=== PATIENT | male | born 1985 | race Hispanic/Latino ===

== ENCOUNTER 2019-12-13 02:17 | Emergency (ER) | payer SELFPAY ==
[2019-12-13] MEDS ORDERED: ONDANSETRON 4 MG/2 ML VIAL ONE (02:42)
[2019-12-13] MEDS ORDERED: DIPHENHYDRAMINE 50 MG/ML VIAL ONE (02:42)
[2019-12-13] MEDS ORDERED: KETOROLAC 30 MG/ML INJ ONE (02:42)
[2019-12-13] MEDS ORDERED: NA CHLORIDE 0.9% 1,000 ML ONE (02:42)
--- NOTE | 2019-12-13 05:05 | ER ---
Nurse's Notes [facility] Name: Roney Anderson Age: 34 yrs Sex: Male : 1985 Arrival Date: 12/13/2019 Time: 02:20 Bed 7 Private MD: Diagnosis: Migraine without aura, not intractable, without status migrainosus Presentation: 12/12 02:31 Chief complaint: Patient states: he has been having a migraine since this morning which bb is getting worse the pain is now 10/10 did not take any medication for his headache. Coronavirus screen: The patient has NOT traveled to a country currently being monitored by the [facility] within the last 14 days. Proceed with normal triage procedures. Ebola Screen: No symptoms or risks identified at this time. Initial Sepsis Screen: Does the patient meet any 2 criteria? No. Patient's initial sepsis screen is negative. Does the patient have a suspected source of infection? No. Patient's initial sepsis screen is negative. Risk Assessment: Do you want to hurt yourself or someone else? Patient reports no desire to harm self or others. Onset of symptoms was December 12, 2019. 02:31 Method Of Arrival: Ambulatory bb 02:31 Acuity: MARGY 3 bb Triage Assessment: 02:35 Headache History: The patient has had previous headaches. bb 05:36 Pain: Pain at worst was 10 out of 10 on a pain scale. Pain began suddenly, Also jd3 complains of no other associated symptoms. Historical: - Allergies: 02:35 No Known Allergies; bb - Home Meds: 02:35 None [Active]; bb - PMHx: 02:35 Migraines; bb - PSHx: 02:35 Appendectomy; bb - Immunization history:: Adult Immunizations up to date. - Social history:: Smoking status: Patient reports the use of cigarette tobacco products, daily, Patient uses alcohol, occasionally. Screenin:36 Abuse screen: Denies threats or abuse. Nutritional screening: No deficits noted. jd3 Tuberculosis screening: No symptoms or risk factors identified. Fall Risk Ambulatory Aid- None/Bed Rest/Nurse Assist (0 pts). Gait- Normal/Bed Rest/Wheelchair (0 pts) Mental Status- Oriented to own ability (0 pts). Total Nelson Fall Scale indicates No Risk (0-24 pts). Assessment: 02:52 General: Appears in no apparent distress. uncomfortable, well groomed, well developed, sg well nourished, Behavior is calm, cooperative, appropriate for age. Pain: Complains of pain in head Quality of pain is described as pressure, sharp, throbbing. Neuro: Level of Consciousness is awake, alert, obeys commands, Oriented to person, place, time, [employer] Officer are equal bilaterally Moves all extremities. Gait is steady, Speech is normal, Facial symmetry appears normal, Reports headache in entire frontal area, occipital area, Denies weakness blurred vision dizziness. Cardiovascular: Patient's skin is warm and dry. Chest pain is denied. Respiratory: Airway is patent Respiratory effort is even, unlabored, Respiratory pattern is regular, symmetrical. GI: Abdomen is round non-distended, Reports nausea. : No signs and/or symptoms were reported regarding the genitourinary system. EENT: No signs and/or symptoms were reported regarding the EENT system. Derm: Skin is pink, warm \T\ dry. Musculoskeletal: Circulation, motion, and sensation intact. Range of motion: intact in all extremities. 04:07 Reassessment: Patient appears in no apparent distress at this time. Patient and/or sg family updated on plan of care and expected duration. Pain level reassessed. Patient is alert, oriented x 3, equal unlabored respirations, skin warm/dry/pink. Patient states feeling better. 04:38 Reassessment: Patient appears in no apparent distress at this time. Patient and/or jd3 family updated on plan of care and expected duration. Pain level reassessed. Patient is alert, oriented x 3, equal unlabored respirations, skin warm/dry/pink. resting in bed with eyes closed, even and unlabored respiration, call light in reach, awaiting disposition. Patient states feeling better. 05:35 Reassessment: Patient appears in no apparent distress at this time. Patient and/or jd3 family updated on plan of care and expected duration. Pain level reassessed. Patient is alert, oriented x 3, equal unlabored respirations, skin warm/dry/pink. reports understanding of discharge instructions, even and steady gait upon discharge. Vital Signs: 02:31 BP 147 / 92; Pulse 60; Resp 18 S; Temp 97.9(O); Pulse Ox 98% on R/A; Weight 90.72 kg bb (R); Height 5 ft. 10 in. (177.80 cm) (R); Pain 10/10; 03:36 BP 127 / 69; Pulse 65; Resp 18; Temp 97.9; Pulse Ox 98% on R/A; sg 04:41 BP 129 / 75; Pulse 63; Resp 16 S; Pulse Ox 99% on R/A; jd3 02:31 Body Mass Index 28.70 (90.72 kg, 177.80 cm) bb Lamont Coma Score: 04:58 Eye Response: spontaneous(4). Verbal Response: oriented(5). Motor Response: obeys tw4 commands(6). Total: 15. ED Course: 02:20 Patient arrived in ED. es 02:32 Celso Fischer MD is Attending Physician. tw4 02:32 Douglas Skinner, RN is Primary Nurse. sg 02:34 Triage completed. bb 02:35 Arm band placed on Patient placed in an exam room, on a stretcher, on pulse oximetry. bb Family accompanied patient. 02:48 No provider procedures requiring assistance completed. Inserted saline lock: 20 gauge sg in right forearm, using aseptic technique. 04:38 Primary Nurse role handed off by Douglas Skinner, RN jd3 04:38 Rome Mike RN is Primary Nurse. jd3 05:36 Patient has correct armband on for positive identification. Bed in low position. Call jd3 light in reach. Side rails up X 1. Adult w/ patient. Pulse ox on. NIBP on. 05:37 IV discontinued, intact, bleeding controlled, No redness/swelling at site. Pressure jd3 dressing applied. Administered Medications: 02:50 Drug: TORadol 30 mg Route: IVP; Site: right forearm; sg 03:50 Follow up: Response: No adverse reaction jd3 02:50 Drug: Zofran (Ondansetron) 4 mg Route: IVP; Site: right forearm; sg 03:50 Follow up: Response: No adverse reaction jd3 02:50 Drug: Benadryl 25 mg Route: IVP; Site: right forearm; sg 03:50 Follow up: Response: No adverse reaction jd3 02:50 Drug: NS 0.9% 1000 ml Route: IV; Rate: 1 bolus; Site: right forearm; sg 03:50 Follow up: Response: No adverse reaction; IV Status: Completed infusion; IV Intake: jd3 1000ml Intake: 03:50 IV: 1000ml; Total: 1000ml. jd3 Outcome: 05:04 Discharge ordered by . tw4 05:36 Discharged to home ambulatory, with family. jd3 05:36 Condition: stable 05:36 Discharge instructions given to patient, family, Instructed on discharge instructions, follow up and referral plans. medication usage, Demonstrated understanding of instructions, follow-up care, medications, Prescriptions given X 2. 05:38 Patient left the ED. jd3 Signatures: Douglas Skinner RN RN Merry Mcgowan Brenda RN RN Rmoe Renae RN RN Celso Espinosa MD MD tw4 Corrections: (The following items were deleted from the chart) 03:37 03:36 BP 142 / 88; Pulse 65bpm; Resp 18bpm; Pulse Ox 98% RA; Temp 97.9F; sg sg 05:36 04:38 Reassessment: Patient appears in no apparent distress at this time. Patient jd3 and/or family updated on plan of care and expected duration. Pain level reassessed. Patient is alert, oriented x 3, equal unlabored respirations, skin warm/dry/pink. resting in bed with eyes closed, even and unlabored respiration, call light in reach, awaiting disposition. Patient states feeling better. jd3
--- NOTE | 2019-12-13 05:06 | EDPHYS ---
Physician Documentation [facility] Name: Roney Anderson Age: 34 yrs Sex: Male : 1985 Arrival Date: 12/13/2019 Time: 02:20 Bed 7 Private MD: ED Physician Celso Fischer HPI: 12/12 03:08 This 34 yrs old Male presents to ER via Ambulatory with complaints of Headache.tw4 03:08 The patient complains of pain to the forehead. The patient describes the headache as tw4 aching, intermittent. Onset: The symptoms/episode began/occurred today. Associated signs and symptoms: The patient has no apparent associated signs or symptoms. Severity of symptoms: At its worst the pain was moderate, in the emergency department the pain is unchanged. The patient has not experienced similar symptoms in the past. Historical: - Allergies: 02:35 No Known Allergies; bb - Home Meds: 02:35 None [Active]; bb - PMHx: 02:35 Migraines; bb - PSHx: 02:35 Appendectomy; bb - Immunization history:: Adult Immunizations up to date. - Social history:: Smoking status: Patient reports the use of cigarette tobacco products, daily, Patient uses alcohol, occasionally. ROS: 03:08 Constitutional: Negative for fever, chills, and weight loss, Eyes: Negative for injury, tw4 pain, redness, and discharge, Cardiovascular: Negative for chest pain, palpitations, and edema, Respiratory: Negative for shortness of breath, cough, wheezing, and pleuritic chest pain, Abdomen/GI: Negative for abdominal pain, nausea, vomiting, diarrhea, and constipation, Back: Negative for injury and pain, MS/Extremity: Negative for injury and deformity, Skin: Negative for injury, rash, and discoloration. 03:08 Neuro: Positive for headache, Negative for altered mental status, dizziness, gait disturbance, hearing loss, loss of consciousness, numbness, seizure activity, speech changes, syncope, near syncope, tinnitus, tremor, weakness. Exam: 03:08 Constitutional: This is a well developed, well nourished patient who is awake, alert, tw4 and in no acute distress. Head/Face: Normocephalic, atraumatic. Chest/axilla: Normal chest wall appearance and motion. Nontender with no deformity. No lesions are appreciated. Cardiovascular: Regular rate and rhythm with a normal S1 and S2. No gallops, murmurs, or rubs. Normal PMI, no JVD. No pulse deficits. Respiratory: Lungs have equal breath sounds bilaterally, clear to auscultation and percussion. No rales, rhonchi or wheezes noted. No increased work of breathing, no retractions or nasal flaring. Abdomen/GI: Soft, non-tender, with normal bowel sounds. No distension or tympany. No guarding or rebound. No evidence of tenderness throughout. Back: No spinal tenderness. No costovertebral tenderness. Full range of motion. MS/ Extremity: Pulses equal, no cyanosis. Neurovascular intact. Full, normal range of motion. Neuro: Awake and alert, GCS 15, oriented to person, place, time, and situation. Cranial nerves II-XII grossly intact. Motor strength 5/5 in all extremities. Sensory grossly intact. Cerebellar exam normal. Normal gait. Vital Signs: 02:31 BP 147 / 92; Pulse 60; Resp 18 S; Temp 97.9(O); Pulse Ox 98% on R/A; Weight 90.72 kg bb (R); Height 5 ft. 10 in. (177.80 cm) (R); Pain 10/10; 03:36 BP 127 / 69; Pulse 65; Resp 18; Temp 97.9; Pulse Ox 98% on R/A; sg 04:41 BP 129 / 75; Pulse 63; Resp 16 S; Pulse Ox 99% on R/A; jd3 02:31 Body Mass Index 28.70 (90.72 kg, 177.80 cm) Lamont Coma Score: 04:58 Eye Response: spontaneous(4). Verbal Response: oriented(5). Motor Response: obeys tw4 commands(6). Total: 15. MDM: 02:32 Patient medically screened. tw4 04:58 Differential diagnosis: cluster headache, migraine, temporal arteritis, tension tw4 headache. Data reviewed: vital signs, nurses notes. Data interpreted: Pulse oximetry: Interpretation: normal. Test interpretation: by ED physician or midlevel provider: not applicable. Counseling: I had a detailed discussion with the patient and/or guardian regarding: the historical points, exam findings, and any diagnostic results supporting the discharge/admit diagnosis. Medication response: Toradol relieved patient's pain. The symptoms have resolved. Response to treatment: the patient's symptoms have markedly improved after treatment, and as a result, I will discharge patient, administer pain medication. Special discussion: I discussed with the patient/guardian in detail that at this point there is no indication for admission to the hospital. It is understood, however, that if the symptoms persist or worsen the patient needs to return immediately for re-evaluation. Administered Medications: 02:50 Drug: TORadol 30 mg Route: IVP; Site: right forearm; sg 03:50 Follow up: Response: No adverse reaction jd3 02:50 Drug: Zofran (Ondansetron) 4 mg Route: IVP; Site: right forearm; sg 03:50 Follow up: Response: No adverse reaction jd3 02:50 Drug: Benadryl 25 mg Route: IVP; Site: right forearm; sg 03:50 Follow up: Response: No adverse reaction jd3 02:50 Drug: NS 0.9% 1000 ml Route: IV; Rate: 1 bolus; Site: right forearm; sg 03:50 Follow up: Response: No adverse reaction; IV Status: Completed infusion; IV Intake: jd3 1000ml Disposition: 12/13/19 05:04 Discharged to Home. Impression: Migraine without aura, not intractable, without status migrainosus. - Condition is Stable. - Discharge Instructions: Migraine Headache, Recurrent Migraine Headache. - Prescriptions for Fiorinal 50- 325-40 mg Oral Capsule - take 1 capsule by ORAL route every 4 hours As needed - not to exceed 6 capsules per day; 20 capsule. Ibuprofen 800 mg Oral Tablet - take 1 tablet by ORAL route every 8 hours As needed take with food; 30 tablet. - Work release form, Medication Reconciliation Form, Thank You Letter, Antibiotic Education, Prescription Opioid Use form. - Follow up: Private Physician; When: Upon discharge from the Emergency Department; Reason: Recheck today's complaints, Continuance of care, Re-evaluation by your physician. - Problem is new. - Symptoms have improved. Signatures: Douglas Skinner RN RN sg Lizbeth Little RN RN [place] Renae RN RN jd3 Celso Fischer MD MD tw4 Corrections: (The following items were deleted from the chart) 05:38 05:04 12/13/2019 05:04 Discharged to Home. Impression: Migraine without aura, not jd3 intractable, without status migrainosus. Condition is Stable. Forms are Medication Reconciliation Form, Thank You Letter, Antibiotic Education, Prescription Opioid Use. Follow up: Private Physician; When: Upon discharge from the Emergency Department; Reason: Recheck today's complaints, Continuance of care, Re-evaluation by your physician. Problem is new. Symptoms have improved. tw4
[2019-12-13 05:53] VITALS: TEMP 97.9
[2019-12-13 05:56] VITALS: BP 129/75; O2SAT 99
== END 2019-12-13 05:38 | disposition home or self-care (01) ==
LOC: ER 02:17
DX: G43.909 Migraine, unspecified, not intractable, without status migrainosus (principal); F17.210 Nicotine dependence, cigarettes, uncomplicated
CPT/HCPCS: 96361; 96374; 96375; 99284; J1200; J2405; J7030